=== PATIENT | female | born 1960 | race Caucasian/White ===

== ENCOUNTER → 2017-06-30 07:25 | Outpatient (CLI) | payer BC, SELFPAY ==
[2017-06-30 09:13] LABS: Color, Urine Yellow (Yellow); Glucose, Dipstick Normal (Normal); Ketone-Dipstick Negative (Negative); Leukocyte Esterase-Dipstick 500 /ul (Negative); Nitrite-Dipstick Negative (Negative); Occult Blood-Urine 150 /ul (Negative); Protein-Dipstick 15 mg/dl (Negative); Urine Bilirubin Dipstick Negative (Negative); Urine Clarity Sl. Cloudy (Clear); Urine Urobilinogen 1 mg/dl (Normal)
[2017-06-30 09:19] LABS: Absolute Lymphocyte Count 1.23 X10^3/ul (0.83-4.51); Absolute Neutrophil Count 2.8 X10^3/uL (2.0-7.7); Basophil# 0.02 X10^3/uL; Basophil% 0.4 % (0-1); Eosinophil# 0.31 X10^3/uL; Eosinophils% 6.4 % (0-5); Hematocrit 41.7 % (37-47); Hemoglobin 13.7 g/dl (12.0-15.0); Lymphocyte # 1.23 X10^3/ul (4.0); Lymphocyte % 25.3 % (19-41); Mean Corp Hgb Conc 32.9 g/gl (32-36); Mean Corpuscular Hgb 29.8 pg (27.0-32.0); Mean Corpuscular Volume 90.8 fL (81-99); Mean Platelet Vol. 9.3 fl (6.2-12.0); Monocyte% 10.3 % (0-10); Neutrophil # 2.79 X10^3/uL (2.7-7.7); Neutrophil % 57.4 % (47-70); POSITIVE COUNT NO; POSITIVE DIFFERENTIAL NO; POSITIVE MORPHOLOGY NO; Platelet Count 363 K/mm3 (150-450); RBC Distribution Width CV 12.7 % (11.6-14.6); Red Blood Count 4.59 M/mm3 (4.2-5.4); White Blood Count 4.9 K/mm3 (4.4-11.0)
[2017-06-30 10:05] LABS: ALB/GLOB Ratio 0.8 RATIO (0.9-2.4); AST(SGOT) 16 U/L (15-37); Alanine Aminotransfer ALT/SGPT 25 U/L (13-56); Albumin, Serum 3.3 g/dL (3.2-5.0); Alkaline Phosphatase 101 U/L (45-117); Anion Gap 10 (5-15); BUN 22 mg/dL (7-18); BUN/Creat Ratio 22.8 RATIO (10-20); Calcium,Total 9.7 mg/dL (8.5-10.1); Chloride 106 mmol/L (98-107); Cholesterol 128 mg/dL (200); Creatinine, Serum 0.96 mg/dL (0.55-1.02); EST Glomerular Filtration Rate 63 mL/min (>60); Est Glom Filt Rate - Afr Amer 76 mL/min (>60); Globulin 4.2 g/dL (2.2-4.2); Glucose 79 mg/dL (74-106); High Density Lipoprotein 36 mg/dL; Protein, Total 7.5 g/dL (6.4-8.2); Sodium Level 144 mmol/L (136-145); Thyroid Stim Hormone (TSH) 8.34 uIU/mL (0.358-3.74); Triglycerides 75 mg/dL; Very Low Density Lipoprotein 15 mg/dL (5-40)
== END ==
PROVIDERS: Family Provider Family Medicine; PCP Family Medicine; Visit Provider Family Medicine
DX: E78.2 Mixed hyperlipidemia (principal); Z13.29 Encounter for screening for other suspected endocrine disorder
CPT/HCPCS: 36415; 80053; 80061; 81002; 84443; 85025

== ENCOUNTER → 2018-09-09 | Outpatient (CLI) | payer BC, SELFPAY ==
--- NOTE | 2018-09-09 14:59 | CT_ITS ---
STUDY: CT ABDOMEN AND PELVIS WITHOUT CONTRAST REASON FOR EXAM: Female, 57 years old. RADIATION DOSAGE (If Supplied By Facility): CTDIvol = ( 8.63 ) mGy, DLP = ( 455.02 ) mGycm TECHNIQUE: Transaxial images were obtained from the dome of the diaphragm to the symphysis pubis without oral contrast, and without intravenous contrast. Sagittal and coronal images were reconstructed. Individualized dose optimization techniques were used for this CT. COMPARISON: None. FINDINGS: The visualized lung bases are unremarkable. The visualized portions of the heart are within normal limits. Normal liver. The gallbladder is contracted the stomach is full with food. Normal spleen. Normal pancreas. Normal bilateral adrenal glands. The right kidney revealed tiny calcifications represent tiny calculi not obstructive. Multiple cortical cyst present, the inferior lateral one is somewhat denser than expected. The left kidney revealed numerous tiny calculi as well with cortical cysts. It is recommended to evaluate the kidneys by means of ultrasound or repeat study with contrast. No obstructive uropathy seen. The small and large bowel are within normal limits. The appendix could not be seen Tubal ligation noted bilaterally. The urinary bladder is not distended. Uterus is small and deviated posteriorly. Normal abdominal aorta. Normal inferior vena cava. Normal retroperitoneum. Normal abdominal wall. Normal osseous structures. CT/Abdomen/Pelvis without Cont IMPRESSION: Multiple renal tiny renal calculi and cysts I recommend ultrasound to evaluate the echogenicity of the cysts. Electronically Signed: Cally La, at 15:41 EDT Tel , Service support ,
== END | disposition home or self-care (01) ==
LOC: CT 14:57
PROVIDERS: Family Provider Family Medicine; PCP Family Medicine; Referring Provider Family Medicine; Visit Provider Family Medicine
DX: N20.0 Calculus of kidney (principal)
CPT/HCPCS: 74176

== ENCOUNTER → 2018-10-05 | Outpatient (CLI) | payer BC, SELFPAY ==
--- NOTE | 2018-10-05 13:59 | US_ITS ---
STUDY: RENAL ULTRASOUND - COMPLETE REASON FOR EXAM: Female, 57 years old. Renal cysts TECHNIQUE: Ultrasound evaluation of the kidneys was performed with real-time and static edwards-scale imaging. COMPARISON: CT 09/09/2018 FINDINGS: RIGHT KIDNEY: Normal location of the right kidney, which is normal in size. The right kidney measures 11.7 x 5.1 x 3.9 cm. There is a normal cortex of the right kidney. The renal cortex measures 1.0 cm. Multiple simple cysts are present, the largest located superiorly measuring 2.5 x 2.1 x 1.6 cm. Multiple nonobstructing renal stones are present, the largest measuring 6 x 6 x 4 mm. There is no right hydronephrosis. DISTAL RIGHT URETER: There is non-visualization of the distal right ureter. There is no demonstrated right ureterovesical junction calculus. There is a visualized right ureteral jet. LEFT KIDNEY: Normal location of the left kidney, which is normal in size. The left kidney measures 12.2 x 5.4 x 4.8 cm. There is a normal cortex of the left kidney. The renal cortex measures 1.2 cm. Multiple simple cysts are present, the largest measuring 1.7 x 1.6 x 1.5 cm. Multiple nonobstructing renal stones are present, the largest measuring 5 x 4 x 2 mm. There is no left hydronephrosis. DISTAL LEFT URETER: There is non-visualization of the distal left ureter. There is no demonstrated left ureterovesical junction calculus. There is a visualized left ureteral jet. BLADDER: The distended urinary bladder has a volume of 534.52 ml. There is a normal wall thickness of the distended urinary bladder. There is no demonstrated mass within the urinary bladder. There are no demonstrated bladder calculi. US/Kidney and Bladder IMPRESSION: Bilateral simple renal cysts and nonobstructing calculi. No solid renal masses or hydronephrosis. Electronically Signed: Osmin Rubin MD at 17:03 EDT Tel , Service support ,
== END | disposition home or self-care (01) ==
PROVIDERS: Family Provider Family Medicine; PCP Family Medicine; Referring Provider Family Medicine; Visit Provider Family Medicine
DX: N28.1 Cyst of kidney, acquired (principal)
CPT/HCPCS: 76770

== ENCOUNTER → 2019-11-25 | Outpatient (CLI) | payer BC, SELFPAY ==
[2019-11-25 08:55] LABS: Mucous, Urine 0 SEEN /hpf (<or=2+)
[2019-11-25 13:25] LABS: Absolute Lymphocyte Count 1.42 X10^3/uL (0.83-4.51); Basophil# 0.05 X10^3/uL; Basophil% 0.8 % (0-1); Eosinophil# 0.25 X10^3/uL; Hematocrit 44.4 % (37-47); Hemoglobin 14.2 g/dL (12.0-15.0); Lymphocyte # 1.42 X10^3/ul (4.0); Lymphocyte % 22.8 % (19-41); Mean Corpuscular Hgb 29.2 pg (27.0-32.0); Mean Corpuscular Volume 91.4 fL (81-99); Monocyte# 0.51 X10^3/uL; Monocyte% 8.2 % (0-10); NRBC Flagged by Analyzer 0 % (0-5); Neutrophil # 3.97 X10^3/uL (2.7-7.7); Neutrophil % 63.9 % (47-70); Platelet Count 300 K/mm3 (150-450); RBC Distribution Width CV 14.3 % (11.6-14.6); RBC Distribution Width SD 48.1 fl (35.1-43.9); Red Blood Count 4.86 M/mm3 (4.2-5.4); White Blood Count 6.2 K/mm3 (4.4-11.0)
[2019-11-25 13:40] LABS: ALB/GLOB Ratio 1.1 RATIO (0.9-2.4); AST(SGOT) 23 U/L (15-37); Alanine Aminotransfer ALT/SGPT 31 U/L (13-56); Albumin, Serum 3.8 g/dL (3.2-5.0); Alkaline Phosphatase 137 U/L (45-117); Anion Gap 5 (5-15); BUN 24 mg/dL (7-18); BUN/Creat Ratio 22.9 RATIO (10-20); Calcium,Total 10.4 mg/dL (8.5-10.1); Chloride 109 mmol/L (98-107); Cholesterol 145 mg/dL (200); Creatinine, Serum 1.05 mg/dL (0.55-1.02); EST Glomerular Filtration Rate 57 mL/min (>60); Est Glom Filt Rate - Afr Amer 69 mL/min (>60); Globulin 3.6 g/dL (2.2-4.2); Glucose 96 mg/dL (74-106); High Density Lipoprotein 53 mg/dL; Potassium 4.2 mmol/L (3.5-5.1); Protein, Total 7.4 g/dL (6.4-8.2); Sodium Level 140 mmol/L (136-145); Thyroid Stim Hormone (TSH) 2.54 uIU/mL (0.358-3.74); Triglycerides 91 mg/dL; Very Low Density Lipoprotein 18 mg/dL (5-40)
[2019-11-25 13:46] LABS: Color, Urine Yellow (Yellow); Glucose, Dipstick Normal (Normal); Ketone-Dipstick Negative (Negative); Leukocyte Esterase-Dipstick 500 /ul (Negative); Nitrite-Dipstick Negative (Negative); Occult Blood-Urine 150 /ul (Negative); Protein-Dipstick 30 mg/dl (Negative); Urine Bilirubin Dipstick Negative (Negative); Urine Clarity Sl. Cloudy (Clear); Urine Urobilinogen 1 mg/dl (Normal)
[2019-11-25 13:59] LABS: Bacteria 1+ /hpf (None Seen); Calcium Oxalate Crystals Ur 1+ /hpf (<or=2+); Red Blood Cells-Urine 10-25 SEEN /hpf (0-5); Squamous Epithelial Cells - UA 0-5 SEEN /hpf (5-10); White Blood Cells 25-50 SEEN /hpf (0-5)
== END | disposition home or self-care (01) ==
LOC: BIMLAB 08:51
PROVIDERS: PCP Family Medicine; Referring Provider Family Medicine; Visit Provider Family Medicine
DX: E03.4 Atrophy of thyroid (acquired) (principal); Z13.220 Encounter for screening for lipoid disorders
CPT/HCPCS: 36415; 80053; 80061; 81001; 84443; 85025

== ENCOUNTER 2020-04-05 13:30 | Outpatient (RCR) | payer BC, SELFPAY ==
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
--- NOTE | 2020-03-15 12:47 | HP.PTREVAL ---
ELIZABETH WELLS, It has been my pleasure to treat FIONA ACKERMAN over the last 8 visits for Right Leg Fracture. Please see the progress note below for an update on the physical therapy plan of care! Subjective: She really feels that water therapy is helping. She wishes that she would have done it years ago. She has been doing exercises at home. Objective/Function: Posture: FH, RS-able to correct but does not maintain. Gait: slightly antalgic- decreased stance on the Left LE with less heel toe pattern Right>left, significant valgus of the right LE, hip drop. Stairs: asc/desc 8 recip with 1 HR and poor control with descent. HR/TR: able reports pain with TR. SLS: 5-8 sec on the left. Sensation: WFL in bilateral LE to gross touch. ROM: WNL in all planes. Strength: Core: fair minus, Hip: 4/5 throughout, Knee: 4+/5 Ankle: 4+/5. Flex: HS: severe, Gastroc: severe. Plan Plan: *Progress to 8 step for steps ups. Continue 2x4 weeks-Aquatic- Focus on LE and core strength/stabilzation for functional mobility Goals Goal 1:: Patient will be I with HEP and progression Goal Time Frame: 4-6 Weeks Goal Progress: Progressing Goal 2:: Patient will ambulate >300 feet with a normalized gait pattern Goal Time Frame: 4-6 Weeks Goal Progress: Progressing Goal 3:: Patient will asc/desc 8 recip with 1 HR Goal Time Frame: 4-6 Weeks Goal Progress: Progressing Goal 4:: Patient will SLS for 15 sec without LOB Goal Time Frame: 4-6 Weeks Goal Progress: Progressing Anticipated Interventions Patient/Client Instruction: Educate patient on: Benefits of Fitness Program Therapeutic Exercise to Include: Strength training, Endurance training, Balance training, Coordination, Body mechanics, Postural training, Flexibilty training, Gait and locomotor training, Dynamic Lumbar Stabilization, Scapular Strength/Stabilization For the Purpose of:: To improve muscle performance and motor function TENS: Yes Cryotherapy (ice pack, ice massage): Yes Thermo therapy (hot pack): Yes Ultrasound (thermal/non thermal): Yes Please do not hesitate to contact me at [phone] by phone or if you have questions or concerns regarding this new plan of care! Sincerely, Keturah Ariza DPT
--- NOTE | 2020-05-21 13:52 | HP.PT.NRP ---
FIONA ACKERMAN was seen in my office for initial evaluation on 02/16/20. The following Plan of Care was established for this patient: Initial Frequency: 2x /Week Initial Duration: 4 Weeks Patient/Client Instruction: Educate patient on: Benefits of Fitness Program Therapeutic Exercise to Include: Strength training, Endurance training, Balance training, Coordination, Body mechanics, Postural training, Flexibilty training, Gait and locomotor training, Dynamic Lumbar Stabilization, Scapular Strength/Stabilization For the Purpose of:: To improve muscle performance and motor function TENS: Yes Cryotherapy (ice pack, ice massage): Yes Thermo therapy (hot pack): Yes Ultrasound (thermal/non thermal): Yes This patient was last seen in our office . Pertinent comments regarding their Physical therapy will appear below: Patient has not attended physical therapy in over 30 days, appropriate to be discharged from PT and return to MD for further evaluation as needed. At this point I will be discontinuing this patient from physical therapy. I would be happy to see this patient again in the future if found appropriate by the physician. Thank you! Keturah Ariza DPT
== END 2020-04-05 19:00 | disposition home or self-care (01) ==
LOC: PT 13:30
PROVIDERS: PCP Family Medicine
DX: S82.143D Displaced bicondylar fracture of unspecified tibia, subsequent encounter for closed fracture with routine healing (principal)
CPT/HCPCS: 97113; 97162; 97164

== ENCOUNTER → 2020-12-27 11:00 | Outpatient (CLI) | payer BC, SELFPAY | PROVIDERS: PCP Family Medicine; Visit Provider Family Medicine | DX: G47.33 Obstructive sleep apnea (adult) (pediatric) (principal) | CPT/HCPCS: 95806 ==

== ENCOUNTER → 2021-01-22 13:21 | Outpatient (CLI) | payer BC, SELFPAY | PROVIDERS: PCP Family Medicine | DX: Z46.89 Encounter for fitting and adjustment of other specified devices (principal) ==

== ENCOUNTER → 2021-02-13 09:57 | Outpatient (CLI) | payer BC, SELFPAY | PROVIDERS: PCP Family Medicine; Visit Provider Family Medicine | DX: Z23 Encounter for immunization (principal) | CPT/HCPCS: 0004A; 91300 ==

== ENCOUNTER 2021-07-28 21:17 | Emergency (ER) | payer BC, SELFPAY ==
[2021-07-28 21:18] VITALS: BP 180/91; PULSE 84; RESP 16; TEMP 36.4; O2SAT 95; BMI 29.0
[2021-07-28 21:45] VITALS: BP 180/91; PULSE 84; RESP 16; TEMP 36.4; O2SAT 95
[2021-07-28 21:54] LABS: Bacteria 0 SEEN /hpf (None Seen); Mucous, Urine 0 SEEN /hpf (<or=2+); Squamous Epithelial Cells - UA 0 SEEN /hpf (5-10)
[2021-07-28 21:59] LABS: Absolute Lymphocyte Count 1.02 X10^3/uL (0.83-4.51); Absolute Neutrophil Count 8.5 X10^3/uL (2.0-7.7); Basophil# 0.05 X10^3/uL; Basophil% 0.5 % (0-1); Eosinophil# 0.04 X10^3/uL; Eosinophils% 0.4 % (0-5); Hematocrit 45.4 % (37-47); Hemoglobin 15.1 g/dL (12.0-15.0); Lymphocyte # 1.02 X10^3/ul (0.83-4.51); Lymphocyte % 10.1 % (19-41); Mean Corp Hgb Conc 33.3 g/dL (32-36); Mean Corpuscular Hgb 30.8 pg (27.0-32.0); Mean Corpuscular Volume 92.5 fL (81-99); Mean Platelet Vol. 9.4 fl (6.2-12.0); Monocyte# 0.41 X10^3/uL; Monocyte% 4.1 % (0-10); NRBC Flagged by Analyzer 0 % (0-5); Neutrophil # 8.52 X10^3/uL (2.7-7.7); Neutrophil % 84.6 % (47-70); Platelet Count 271 K/mm3 (150-450); RBC Distribution Width CV 13.3 % (11.6-14.6); RBC Distribution Width SD 45.7 fl (35.1-43.9); Red Blood Count 4.91 M/mm3 (4.2-5.4); White Blood Count 10.1 K/mm3 (4.4-11.0)
[2021-07-28 22:00] LABS: Color, Urine Yellow (Yellow); Glucose, Dipstick Normal (Normal); Ketone-Dipstick 15 mg/dl (Negative); Leukocyte Esterase-Dipstick 100 /ul (Negative); Nitrite-Dipstick Negative (Negative); Occult Blood-Urine 250 /ul (Negative); Protein-Dipstick 100 mg/dl (Negative); Urine Bilirubin Dipstick Negative (Negative); Urine Clarity Cloudy (Clear); Urine Urobilinogen 1 mg/dl (Normal)
[2021-07-28 22:13] LABS: Anion Gap 5 (5-15); BUN 24 mg/dL (7-18); BUN/Creat Ratio 17.3 RATIO (10-20); Calcium,Total 10.6 mg/dL (8.5-10.1); Chloride 108 mmol/L (98-107); Creatinine, Serum 1.39 mg/dL (0.55-1.02); EST Glomerular Filtration Rate 41 mL/min (>60); Est Glom Filt Rate - Afr Amer 49 mL/min (>60); Estimated Creatinine Clearance 43.86 ml/min; Glucose 128 mg/dL (74-106); Potassium 4.1 mmol/L (3.5-5.1); Sodium Level 140 mmol/L (136-145)
--- NOTE | 2021-07-28 22:13 | CT_ITS ---
STUDY: CT ABDOMEN AND PELVIS WITHOUT CONTRAST REASON FOR EXAM: Female, 60 years old. left flank pain RADIATION DOSAGE (If Supplied By Facility): CTDIvol = ( 9.53 ) mGy, DLP = ( 507.16 ) mGycm TECHNIQUE: Transaxial images were obtained from the dome of the diaphragm to the symphysis pubis without oral contrast, and without intravenous contrast. Sagittal and coronal images were reconstructed. Individualized dose optimization techniques were used for this CT. COMPARISON: CT abdomen pelvis 09/09/2018. FINDINGS: LOWER CHEST: Included lung bases are clear. LIVER: Grossly unremarkable. GALLBLADDER AND BILIARY TREE: Grossly unremarkable. PANCREAS: Grossly unremarkable. SPLEEN: Grossly unremarkable. ADRENAL GLANDS: Grossly unremarkable. KIDNEYS AND URETERS: There is a 5 mm calculus in the mid left ureter. The proximal left ureter is dilated with moderate left hydronephrosis, perinephric and periureteral stranding. Multiple small calculi in both kidneys. No hydronephrosis on the right. Several small low-attenuation structures in both kidneys likely cysts but not completely assessed without contrast. Structure at the upper pole left kidney with peripheral rim calcification. PERITONEUM: No free air. No free fluid. BOWEL: Scattered diverticula throughout the colon. No bowel obstruction. APPENDIX: Visualized and unremarkable. No evidence of acute appendicitis. VESSELS: Abdominal aorta is normal caliber. REPRODUCTIVE ORGANS: Grossly unremarkable. Surgical clips in the adnexal regions. URINARY BLADDER: Grossly unremarkable. ABDOMINAL WALL: Unremarkable. BONES: No acute abnormalities. CT/Abdomen/Pelvis without Cont IMPRESSION: Mid left ureteral calculus with moderate left hydroureteronephrosis. Bilateral nephrolithiasis. Electronically Signed: Kaylee Alejo MD at 23:05 EDT ,
--- NOTE | 2021-07-28 22:13 | EX.ED.DYSGE1 ---
HPI History of Present Illness Chief Complaint: Flank Pain Detail of Chief Complaint: Flank pain that started about 2:30 PM today. Informant: patient Onset/Context/Timing Current Severity: 11/23 Narrative Narrative: Patient presents to the emergency department complaint of left-sided flank pain that started around 2:30 PM. Patient has history of kidney stones. Patient states typically her kidney stones are on the right. Patient's had nausea and vomiting with this. She denies urinary symptoms. She denies any fever. Patient rates her pain a 9 out of 10 currently. PFSH PFS Medical History (Updated 07/28/21 @ 23:[address] Laura Lynne, DO) Renal calculi Home Medications hydrocodone-acetaminophen 1 tab PO Q4H PRN PRN 2 Days #15 tablet 07/28/21 [Rx Last Taken Unknown] naproxen 500 mg PO BID #14 tab 07/28/21 [Rx Last Taken Unknown] ondansetron 4 mg PO Q8H PRN PRN #10 tab 07/28/21 [Rx Last Taken Unknown] Allergy/AdvReac Type Severity Reaction Status Date / Time No Known Allergies Allergy Verified 07/28/21 21:21 Surgical History (Updated 07/28/21 @ 21:26 by Sudha Juan) Tubal ligation status Social History Smoking Status: Never smoker [facility] ED Constitutional Constitutional ED: Reports systems reviewed and no addt'l complaints, except as documented; Denies body ache(s), change in weight or chills Eyes Eyes: Denies acute decrease in peripheral vision, change in vision, double vision or loss of vision ENT ENT ED: Reports none; Denies ear pain, lip swelling, loss taste/smell, neck pain, otalgia or sore throat Cardiovascular Cardiovascular: Reports none; Denies abdominal pain, chest pain with activity, leg edema, lightheadedness, palpitations, rapid heart rate or syncope Respiratory/Chest Respiratory/Chest: Reports none; Denies change in mental status, dry cough, dyspnea, hemoptysis, shortness of breath at rest or shortness of breath with exertion Gastrointestinal Gastrointestinal: Reports none, abdominal pain, nausea and vomiting; Denies change in stool character, diarrhea, hematemesis, hematochezia, melena or rectal bleeding Genitourinary Genitourinary ED: Reports none; Denies abdominal discomfort, anuria, dysuria, genital pain or polyuria Musculoskeletal Musculoskeletal: Reports none and back pain; Denies arthralgias, difficulty walking, extremity pain, muscle weakness or myalgias Integumentary Reports none; Denies abscess or rash Neurologic Neurologic: Reports none; Denies abnormal gait, confusion, focal weakness, frequent falls, headache(s), loss of vision, numbness, paresthesias, radicular pain, vertigo or weakness Psychiatric Psychiatric: Reports systems reviewed and no addt'l complaints, except as documented and none; Denies behavioral changes, confusion, difficulty concentrating, hallucinations, suicidal ideation, tactile hallucinations or visual hallucinations Endocrine Endocrinology: Denies none, cold intolerance, excessive sweating, fatigue or heat intolerance Hematologic/Lymphatic Hematologic/Lymphatic: Reports none; Denies anemia, easy bleeding or easy bruising Allergic/Immunologic Allergic/Immunologic ED: Denies as per HPI, none, lip swelling, mouth swelling, throat swelling, tongue swelling or hives EXAM Physical Exam Const Vital Signs: 07/28/21 21:18 07/28/21 21:45 Temperature 97.6 F L 97.6 F L Temperature Source Temporal Temporal Pulse Rate 84 84 Respiratory Rate 16 16 Blood Pressure 180/91 H 180/91 H Blood Pressure Mean 120 120 Pulse Ox 95 95 Oxygen Delivery Method Room Air Room Air Positive well nourished and well developed General Appearance ED: well developed and NAD HEENT Reports TM's clear and moist mucous membranes normocephalic and atraumatic; Negative for trauma or tenderness Tympanic Membrane ED: Yes TM's clear Eyes PERRL and EOMs intact bilaterally General Eye ED: Negative for pale conjunctiva or scleral icterus Neck no lymphadenopathy, supple and no JVD General: Negative for tenderness Chest Wall inspection of chest normal and palpation of chest normal Chest: Negative for tenderness Resp normal respiratory effort and clear to auscultation bilaterally Effort and Inspection: Negative for respiratory distress or pain with movement Auscultation: Negative for rhonchi, wheezes or diminished lung sounds Cardio regular rate, regular rhythm, S1 normal heart sound, S2 normal heart sound and no murmurs Peripheral Pulses: pulses 2+ throughout GI normal to inspection, nondistended, normoactive bowel sounds, soft to palpation, non-distended and no masses GI Narrative: Tenderness to the left lower quadrant and suprapubic region with some guarding. There is no rebound, rigidity, or peritoneal signs. Back/Spine no thoracic nor lumbar tenderness Back/Spine Narrative: Patient with CVA tenderness on the left. Extremity normal to inspection General Extremety ED: Negative for edema General Extremity: Negative for edema Neuro oriented x3, CN's II-XII intact bilaterally, no sensory deficits noted and gait normal Sensorium / Orientation: awake, alert, oriented to person, oriented to place and oriented to time Motor Exam: strength 5/5 throughout and strength abnormal Psych mental status grossly normal Skin no rashes or lesions noted and no wounds MDM MDM MDM Narrative Medical decision making narrative: IV line established on arrival. Patient was given Zofran, Toradol, and Dilaudid for pain and she had good pain relief with that. Lab work-up was unremarkable. Urinalysis showed 25-50 RBCs with no signs of infection. CT scan of the abdomen pelvis without contrast obtained showed a 5 mm calcification in the midportion of the left ureter with proximal hydroureter. Results discussed with patient and her . Patient has never had to have an extraction. I will give her urine strainers for home as well as [place] and naproxen and Zofran. Patient will be given referral to urology for follow-up. She is advised to return if worsening pain, fever, vomiting, or condition should worsen anyway. Lab Data Attestation: I reviewed the patient's lab results. Labs: Laboratory Results - last 24 hr 07/28/21 07/28/21 07/28/21 21:30 21:30 21:30 WBC 10.1 RBC 4.91 Hgb 15.1 H Hct 45.4 MCV 92.5 MCH 30.8 MCHC 33.3 RDW Std Deviation 45.7 H RDW Coeff of Lucy 13.3 Plt Count 271 MPV 9.4 Immature Gran % (Auto) 0.300 Neut % (Auto) 84.6 H Lymph % (Auto) 10.1 L [place] % (Auto) 4.1 Eos % (Auto) 0.4 Baso % (Auto) 0.5 Absolute Neuts (auto) 8.5 H Absolute Lymphs (auto) 1.02 Nucleated RBC % 0 Sodium 140 Potassium 4.1 Chloride 108 H Carbon Dioxide 27.0 Anion Gap 5 BUN 24 H Creatinine 1.39 H Estim Creat Clear Calc 43.86 Est GFR (MDRD) Af Amer 49 L Est GFR (MDRD) Non-Af 41 L BUN/Creatinine Ratio 17.3 Glucose 128 H Calcium 10.6 H Urine Color Yellow Urine Clarity Cloudy Urine pH 7.0 Ur Specific [place] 1.010 Urine Protein 100 H Urine Glucose (UA) Normal Urine Ketones 15 H Urine Occult Blood 250 H Urine Nitrite Negative Urine Bilirubin Negative Urine Urobilinogen 1 H Ur Leukocyte Esterase 100 H Urine RBC 25-50 SEEN Urine WBC 0-5 SEEN Ur Squamous Epith Cells 0 SEEN Urine Bacteria 0 SEEN Urine Mucus 0 SEEN Radiography Diagnostic Testing: Clinical Impression(s) from Imaging Studies Abdomen/Pelvis CT 07/28/21 22:13 IMPRESSION: Mid left ureteral calculus with moderate left hydroureteronephrosis. Bilateral nephrolithiasis. Electronically Signed: Kaylee Alejo MD at 23:05 EDT , Discharge Plan Triage Chief Complaint: Flank Pain ED Provider: Laura Lynne Dx/Rx/DC Orders Clinical Impression: Ureterolithiasis Instructions: ED Kidney Stone w/ Colic Prescriptions: New hydrocodone-acetaminophen [hydrocodone-acetaminophen] 1 TABLET tablet 1 tab PO Q4H PRN PRN (Reason: Pain) 2 Days Qty: 15 RF: 0 ondansetron [ondansetron] 4 MG tablet 4 mg PO Q8H PRN PRN (Reason: Nausea) Qty: 10 RF: 0 naproxen 500 MG tablet 500 mg PO BID Qty: 14 RF: 0 Primary Care Provider: Kendra Walker Referrals: Kendra Walker DO [Primary Care Provider] - Rahul Martinez MD [STAFF PHYSICIAN] - 3-5 Days Disposition Disposition: Home, Self Care
[2021-07-28] MEDS: Ondansetron 4 MG/2 ML Vial IV (22:17)
[2021-07-28] MEDS: Ketorolac 15 MG/ML Vial IV (22:18)
[2021-07-28] MEDS: 0.9% Normal Saline 1,000 ML 150 ML IV (22:18)
[2021-07-28] MEDS: HYDROmorphone 1 MG/ML Syringe IV (22:19)
[2021-07-28 22:58] LABS: Red Blood Cells-Urine 25-50 SEEN /hpf (0-5); White Blood Cells 0-5 SEEN /hpf (0-5)
[2021-07-28 23:55] VITALS: BP 161/78; PULSE 78; RESP 16
== END 2021-07-28 23:55 | disposition home or self-care (01) ==
PROVIDERS: Emergency Provider Emergency Medicine; PCP Family Medicine; Visit Provider Emergency Medicine
DX: N13.2 Hydronephrosis with renal and ureteral calculous obstruction (principal)
CPT/HCPCS: 74176; 80048; 81001; 85025; 96361; 96374; 96375; 99283; J7030; A4216; J2405

== ENCOUNTER 2022-09-12 06:10 | Day surgery (SDC) | payer BC, SELFPAY ==
--- NOTE | 2022-09-11 23:55 | PCM.HP.BLA ---
History and Physical Date of Admission: 09/12/22 Allergies No Known Allergies Allergy Medications levothyroxine 75 mcg tablet (Synthroid) 75 mcg PO DAILY mometasone 220 mcg/actuation(30 doses) breath activated powder inhaler (Asmanex Twisthaler) 1 inh inhalation sumatriptan succinate 100 mg tablet 100 mg PO ONCE PRN PFSH Medical History Arthritis Complication of right ear piercing History of kidney stones Migraines Osteoarthritis Pain of right earlobe Puncture wound without foreign body of right ear, sequela Renal calculi Thyroid disease Surgical History History of ankle surgery History of knee surgery Tubal ligation status Family History Father Heart diseaseMother HypertensionBrother Bone cancerGrandfather Brain cancer Social History Smoking Status: Never smoker alcohol intake: never substance use type: does not use HPI eval torn right ear lobe Details: HISTORY OF PRESENT ILLNESS 61 year old woman presents with a 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 She states the injury was a few years ago when her ear ring on her right ear lobe got pulled. Over time, the weight of her ear rings caused the right ear lobe to tear completely leaving a bifid ear lobe. She states there is pain when her ear lobe is bumped. She denies fever. She denies recent infection. She denies drainage. She presents at this time for further evaluation and treatment. REVIEW OF SYSTEMS General - Denies fever, fatigue, and weight loss. Eyes - Denies cataracts and glaucoma. ENT - Denies nasal congestion and sore throat. Endocrine - Denies excessive thirst and urination. Has thyroid disease. Skin - Denies suspicious lesions and skin cancer. Has post-traumatic painful torn right ear lobe scar contour deformity. Musculoskeletal - Has joint pain, joint stiffness, weakness of muscles and joints. Denies back pain, and arthritis. Neuro - Has headaches. Cardiovascular - Denies chest pain, fatigue, and shortness of breath with exertion. Psych - Denies anxiety and depression. Respiratory - Has chronic cough and shortness of breath. Has sleep apnea. Gastrointestinal - Denies nausea, vomiting, diarrhea, and constipation. Hematologic - Denies abnormal bruising and bleeding. Genitourinary - Denies hematuria and urinary frequency. PHYSICAL EXAMINATION General - Alert and Oriented. HEENT - PERRL. EOMI. Throat is clear. On the right ear lobe is a bifid deformity. Measures 1 cm. Some mild tenderness to palpation. No evidence of infection. Neck - Supple and nontender. No cervical adenopathy. Lungs - Clear to auscultation. Heart - Regular rate and rhythm. Abdomen - Soft and nondistended. Extremities - FROM. No axillary adenopathy. Radial pulses are palpable. Neuro - CN II-XII grossly intact. Psych - Normal mood and affect. ASSESSMENT 1. 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 2. Late effect puncture wound without foreign body from piercing right ear lobe with bifid deformity. 3. Pain right ear lobe. PLAN Patient has a painful torn right ear lobe scar contour bifid deformity. Recommend excision and repair of this deformity. Sometimes a local skin flap is used to re-create the piercing aperture to allow use of ear rings after surgery. If the piercing aperture is not re-created or if the scar tissue present is not adequate enough, then would proceed with just excision and repair of this deformity. Postoperatively the patient can get another piercing away from the healing scar. She may wilder the healing scar 6 months after surgery. Tissue removed will be sent to Pathology for analysis to rule out carcinoma and to Microbiology for culture. A positive culture will necessitate antibiotic therapy. Sometimes a sub-clinical infection is present that allows weakening and stretching of the piercing which eventually leads to the bifid deformity. Surgery can be done under local anesthesia and IV sedation on an outpatient basis. If the piercing aperture is re-created, will place a red rubber catheter through the aperture for 2 weeks until swelling has decreased. This will prevent the piercing aperture from rubbing its sides together which can cause maceration. After the red rubber catheter is removed, it will be ready for piercing at the patient's convenience. Patient was informed of the risks and complications of the procedure including alternatives to surgery. These were discussed with the patient personally. Patient voices understanding and wishes to proceed. Some of the risks and complications were included in a form from the [employer]. Potential risks and complications included but not inclusive of bleeding, infection, hematoma, bruising, swelling, loss of sensation to skin, wound breakdown, need for wound care, poor scarring, poor aesthetic outcome, intra operative cardiac or neurologic events, DVT, PE, and reaction to anesthesia. Coding Level of Care Code Off vis,new,level 3 Diagnoses Puncture wound without foreign body of right ear, sequela S01.331S Complication of right ear piercing S01.331A Pain of right earlobe H92.01 Assessment and Plan (No Qualifiers) Assessment and Plan (1) Puncture wound without foreign body of right ear, sequela: Status: Chronic Comment: post-traumatic painful torn right earlobe scar contour deformity with bifid deformity (2) Complication of right ear piercing: Status: Chronic Comment: post-traumatic painful torn right earlobe scar contour deformity with bifid deformity (3) Pain of right earlobe: Status: Chronic
[2022-09-12] VITALS (8 sets, daily range): BP systolic 128–161; BP diastolic 73–87; PULSE 69–81; RESP 12–18; TEMP 35.8–36.5; O2SAT 95–100; BMI 29.9
--- NOTE | 2022-09-12 | LES_PTH ---
PATIENT: FIONA ACKERMAN LOC: [facility] – [place] U#:[id number] AGE/SX: 61/F ROOM: RE09/12/[address]: Dr. Edi Zuñiga MD : 1960 BED: DIS: 09/12/2022 SPEC #: [id number] RECD: 09/12/22 10:36 STATUS: ERIBERTO REQ #: [id number] CYNDY: 09/12/22 00:[address]: Edi Zuñiga DEPT: SURGICAL PATHOLOGY RECD BY: Bryan Sousa ENTERED: 09/12/22 10:36 SP TYPE: Lesion OTHR DR: Dr. Kendra Walker, DO Tissues: Skin of external ear, NOS Procedures: Surgery Specimen Level III HEADER OPERATION: Excision and repair post-traumatic painful torn right earlobe PRE-OP DIAGNOSIS: Puncture wound right ear, sequela; complication of right ear piercing, pain TISSUE SUBMITTED: Right earlobe tissue MICROSCOPIC DIAGNOSIS Right earlobe tissue, excision and repair: Pieces of skin with underlying tissue with chronic inflammation. See comment. JAYNA:genny 09/15/2022 COMMENT Clinical correlation and appropriate follow up are necessary. MICROSCOPIC DESCRIPTION Slides are reviewed. GROSS DESCRIPTION Received in fixative is one container labeled with the patient's name and designated right earlobe tissue. The specimen consists of two pieces of skin with underlying tissue measuring 1.0 x 0.3 x 0.2 cm and 0.7 x 0.4 x 0.2 cm. The entire specimen is submitted in one cassette. / JAYNA:genny 09/12/2022 TC:3 CPT: 28646
[2022-09-12] MEDS: Lactated Ringers 1,000 ML 15 ML IV (06:37)
[2022-09-12] MEDS: Clindamycin 900 MG/50 ML BAG 75 MG IV (07:40)
[2022-09-12] MEDS: Lidocaine 1% /Epi 1:100 (20ml) 20 ML Vial (08:05)
[2022-09-12] MEDS: Mupirocin Ointment 22gm Tube 1 APPLIC (08:27)
--- NOTE | 2022-09-12 09:36 | PCM.OPRPT ---
Problems Associated Problem List Diagnoses (1) Puncture wound without foreign body of right ear, sequela: (2) Complication of right ear piercing: (3) Pain of right earlobe: Report of Operation Date of Procedure: 08/12/22 Pre-Operative Diagnosis: 1. 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 2. Late effect puncture wound without foreign body from piercing right ear lobe with bifid deformity. 3. Pain right ear lobe. Post-Operative Diagnosis: Same. Surgery/Procedure Performed:: Excision and repair post-traumatic painful torn right ear lobe bifid scar contour deformity with rotation skin flap reconstruction (1 cm2). 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 She states the injury was a few years ago when her ear ring on her right ear lobe got pulled. Over time, the weight of her ear rings caused the right ear lobe to tear completely leaving a bifid ear lobe. She states there is pain when her ear lobe is bumped. She denies fever. She denies recent infection. She denies drainage. Patient was informed of the risks and complications of the procedure including alternatives to surgery. These were discussed with the patient personally. Patient voices understanding and wishes to proceed. Some of the risks and complications were included in a form from the [employer]. Surgeon: Edi Zuñiga MD nail professional: None Type of Anesthesia: Local MAC (xylocaine with epinephrine regional auricular block and IV sedation.) Anesthesiologist: Maurice Rhodes MD and Carey Choudhary CRNA Specimen's removed: Painful torn right ear bifid scar contour deformity to Pathology and Microbiology. Drains: None. Estimated Blood Loss (mL): 2. Description of Procedure: Patient was taken to OR in supine position and was given IV sedation. The right ear was prepped and draped in the usual fashion. SCD's were placed for DVT prophylaxis. Perioperative antibiotics were given intravenously. The right ear was infiltrated with xylocaine and epinephrine as a regional auricular block. After waiting 5 minutes for the anesthetic to take effect, I made an incision through the bifid scar deformity right ear lobe under loupe magnification. Anterior and posterior flaps were elevated. The anterior flap was thinner and not of good quality so it was excised. The posterior flap was then rotated on itself and sutured to the base of the flap with 5-0 Monocryl interrupted sutures. I was able to pass a hemostat through the opening to preserve a piercing hole for her ear ring. Otherwise she would have to wait 6 months until the scar matured before re-piercing the scar. I then closed the subcutaneous tissue with 5-0 Monocryl interrupted sutures. The rest of the ear lobe was repaired with 6-0 Prolene simple interrupted and vertical mattress interrupted sutures. The piercing flap was then inset with 5-0 Monocryl interrupted sutures and 6-0 Prolene interrupted sutures. I then placed an 8 [place] red rubber catheter through the piercing hole and tied to itself as a hoop with 4-0 Nylon interrupted sutures. Tissue that was excised was sent to Pathology for analysis to rule out carcinoma and to Microbiology for culture. A positive culture will necessitate antibiotic therapy. The size of the defect and the size of the flap needed to create a piercing hole was 1 cm2. Patient tolerated the procedure well and was sent to PACU in satisfactory condition. Patient will be sent home on antibiotics and pain medication. She will keep her head elevated during the initial postoperative period. Patient will followup in a week for a wound check and for discussion of the pathology report and for discussion of the microbiology report. A positive culture will necessitate antibiotic therapy. Will remove the sutures and remove the red rubber catheter in 2 weeks. Grafts/Implants Used: None. Procedure Start Time: 08:02 Procedure Stop Time: 09:27 Complications None. Admit VTE Documentation VTE Present on Admission: No VTE Mechan Device Prophylaxis: SCD's VTE Pharm Prophylaxis ordered?: No Addendum Addendum: Surgery Charges CPT - 35167 ICD-10 - S01.331S, S01.331A, H92.01 45895 S01.331S, S01.331A, H92.01
--- NOTE | 2022-09-12 10:03 | DCINST_ITS ---
Discharge Instructions Diet Discharge Diet: No restrictions and - (encourage nutritional supplementation with protein to help the healing process.) Activity Discharge Activity: May Drive (when not taking narcotic pain medication.), May Shower (in two days from the neck down. May wash face gently in the sink.) and - (keep head elevated. No heavy lifting.) May shower in (days): 2 (from the neck down. may wash face gently in the sink.) May resume sexual activity in: No Restrictions Weight Bearing Status: Weight bearing as tolerated Lifting Restrictions: 20 lbs. Keep extremity elevated above heart level: - (elevate head.) Dressing / Incision Call your doctor if your incision/area has: Continuous Slow Oozing, Sudden Increased Bleeding, Increased Pain/ Swelling, Increased Redness, Foul Smelling Discharge and Swelling at the incision site Call your doctor if you observe: Fever of 101 or Higher, Coldness, Increased Pain, Shortness of breath, Chest pain, Calf discomfort and Uncontrolled pain Suture Line Care: - (apply thin layer antibiotic ointment to suture line daily.) Cleanse incision/area with: - (may shower in two days from the neck down. may wash face gently in the sink.) Additional Dressing/Incision Instructions:: will remove the red rubber catheter hoop in 2 weeks. Follow Up Care Please Follow Up With: Edi Zuñiga MD When: one week. call [phone] for appt. Test Results: Test results from this visit will be discussed in further detail at your follow- up appointment, if applicable. Discharge Plan Admission Primary Reason for Your Visit: excision and repair torn earlobe bifid scar contour deformity Attending Provider: Edi Zuñiga Primary Care Provider: Kendra Walker Discharge Orders/Prescriptions Prescriptions: New clindamycin HCl [Cleocin HCl] 300 mg capsule 300 mg PO TID Qty: 15 0RF L.acidoph,saliva-B.bif-S.therm [Acidophilus Probiotic Blend] 175 mg capsule 1 cap PO DAILY Qty: 20 0RF oxycodone-acetaminophen [Percocet] 5-325 mg tablet 1 tab PO Q6H PRN (Reason: pain (scale score 7-10)) 5 Days Qty: 20 0RF Rx Instructions: 20 tabs (twenty) Continued sumatriptan succinate 100 mg tablet 100 mg PO ONCE PRN (Reason: MIGRAINES) levothyroxine [Synthroid] 75 mcg tablet 75 mcg PO DAILY Asmanex Twisthaler 220 mcg/ actuation (30) aerosol powdr breath activated 1 inh inhalation DAILY omeprazole 40 mg Capsule,Delayed Release(Dr/Ec) 40 mg PO DAILY Referrals / Follow Up: Kendra Walker DO [Primary Care Provider] - Disposition Disposition (needs filled in before D/C Order can be placed): Home, Self Care
== END 2022-09-12 11:15 | disposition home or self-care (01) ==
LOC: SDC 06:10 → AC 06:12
PROVIDERS: PCP Family Medicine; Referring Provider Surgery; Visit Provider Surgery
PROC: (CPT 69110; principal; 2022-09-12 07:20)
DX: S01.331A Puncture wound without foreign body of right ear, initial encounter (principal); H92.01 Otalgia, right ear; E07.9 Disorder of thyroid, unspecified; X58.XXXA Exposure to other specified factors, initial encounter; Z86.73 Personal history of transient ischemic attack (TIA), and cerebral infarction without residual deficits; Z79.899 Other long term (current) drug therapy; Z87.891 Personal history of nicotine dependence
CPT/HCPCS: 69110; 14060; 00120; 87070; 87075; 87077; 87102; 87176; 87186; 87205; 87206; 88304; 88305; J7120; C1758; J2405